=== PATIENT | female | born 1980 | race Two or more races ===

== ENCOUNTER 2025-07-04 15:57 | Emergency (ER) | payer MEDICAID, SELFPAY ==
[2025-07-04 16:09] VITALS: BP 119/77; PULSE 84; RESP 19; TEMP 37.2; O2SAT 98; BMI 25.9
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
[2025-07-04] MEDS: IBUPROFEN TAB 400 MG TABLET 800 MG PO (18:03)
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
== END 2025-07-04 20:05 | disposition home or self-care (01) ==
PROVIDERS: Emergency Provider Emergency Medicine; PCP Physician Assistant Medical
DX: S19.9XXA Unspecified injury of neck, initial encounter (principal); S39.92XA Unspecified injury of lower back, initial encounter; E11.9 Type 2 diabetes mellitus without complications; S63.502A Unspecified sprain of left wrist, initial encounter; X50.0XXA Overexertion from strenuous movement or load, initial encounter
CPT/HCPCS: 71045; 72020; 73100; 73120; 99283; A9270